=== PATIENT | male | born 1965 | race African-American/Black ===

== ENCOUNTER 2025-08-11 06:31 | Emergency (ER) | payer SELFPAY ==
[2025-08-11] MEDS ORDERED: Lidocaine 1% PF 5 ML VIAL ONE (07:05)
== END 2025-08-11 07:40 | disposition home or self-care (01) ==
LOC: MADERS 06:31
DX: L03.012 Cellulitis of left finger (principal); I10 Essential (primary) hypertension; E11.9 Type 2 diabetes mellitus without complications; Z87.891 Personal history of nicotine dependence
CPT/HCPCS: 10060